=== PATIENT | male | born 1950 | race Caucasian/White ===

== ENCOUNTER → 2021-01-08 | Outpatient (CLI) | payer MEDICARE, OTHER ==
[~2021-01-08] MED LIST: AMLODIPINE BESY10 MG PO; HYDROCHLOROTHIA25 MG PO; TOPROL XL50 MG PO
== END ==
LOC: KOH-I 10:45
DX: J01.81 Other acute recurrent sinusitis (principal); J34.89 Other specified disorders of nose and nasal sinuses
CPT/HCPCS: 70486

== ENCOUNTER → 2021-02-09 | Day surgery (SDC) | payer MEDICARE, OTHER | END | disposition home or self-care (01) | LOC: OR 06:11 | DX: K31.7 Polyp of stomach and duodenum (principal); K29.70 Gastritis, unspecified, without bleeding; I10 Essential (primary) hypertension; E66.01 Morbid (severe) obesity due to excess calories | CPT/HCPCS: J2704; J7030 ==

== ENCOUNTER → 2022-07-29 | Day surgery (SDC) | payer MEDICARE, OTHER ==
[~2022-07-29] MED LIST changes: +CLONAZEPAM1 M1 PO; +COZAAR50 MG PO; +LIPITOR40 MG PO; +METFORMIN HCL500 M2 PO; +PROTONIX 40 MG40 MG PO
== END | disposition home or self-care (01) ==
LOC: OR 05:19
DX: R19.5 Other fecal abnormalities (principal); K57.30 Diverticulosis of large intestine without perforation or abscess without bleeding
CPT/HCPCS: 82962; J2704